=== PATIENT | female | born 1965 | race Caucasian/White ===

== ENCOUNTER 2019-03-30 18:58 | Emergency (ER) | payer OTHER ==
[~2019-03-30] VITALS: Ht 152.4 cm; Wt 77.3 kg
[~2019-03-30 18:58] MED LIST: LOSA50TA64 PO
[2019-03-30 18:59] VITALS: BP 154/101
[2019-03-30] MEDS ORDERED: CHL25 PO (19:06)
== END 2019-03-30 20:30 | disposition left against medical advice (07) ==
LOC: EMS 19:01
DX: Z53.21 Procedure and treatment not carried out due to patient leaving prior to being seen by health care provider (principal)